=== PATIENT | female | born 1980 | race Caucasian/White ===

== ENCOUNTER → 2019-04-30 09:26 | Outpatient (CLI) | payer OTHER, MEDICAID, SELFPAY ==
--- NOTE | 2019-04-30 09:28 | DI.US.S_ITS ---
PROCEDURE: US OB <= 14 WEEKS FETUS INDICATIONS: DATING OUTSIDE/PRIOR DATING DATA: Last menstrual period (LMP): 03/04/19. LMP-based estimated date of delivery (GARO): 12/09/19. First dating scan (date and location): 04/30/19. Estimated date of delivery (GARO) from first dating scan: 12/08/19. TECHNIQUE: Real-time scanning was performed of the fetus and maternal pelvic organs, with image documentation. COMPARISON: None. FINDINGS: Embryo: Single living intrauterine fetus is present with a crown-rump length measuring 1.8 cm, 8 weeks 2 days. heart rate measures 169 beats per minute. A presumed right corpus luteum. Measurement variability in dating: +/- 4 weeks by LMP, +/- 7 days by mean sac diameter (use before 6 weeks gestation if crown-rump length not able to be measured), +/- 5 days by crown-rump length (up to 8 weeks 6 days gestation), +/- 7 days by crown-rump length (up to 13 weeks 6 days gestation). Maternal organs: Ovaries unremarkable. Limited images through the kidneys demonstrate no hydronephrosis. IMPRESSION: Single living intrauterine fetus with gestational age of 8 weeks and 2 days by today's ultrasound measurements corresponding to an GARO of 12/08/19, concordant with LMP as above. Dictated by: Humble Gifford M.D. on 04/30/2019 at 10:51 Approved by: Humble Gifford M.D. on 04/30/2019 at 10:53
== END ==
PROVIDERS: Family Provider Internal Medicine; PCP Internal Medicine; Visit Provider Obstetrics & Gynecology
DX: Z34.81 Encounter for supervision of other normal pregnancy, first trimester (principal); Z3A.08 8 weeks gestation of pregnancy
CPT/HCPCS: 76801

== ENCOUNTER → 2019-05-11 12:46 | Outpatient (CLI) | payer OTHER, MEDICAID, SELFPAY ==
[2019-05-11 13:09] LABS: Add Manual Diff / Slide Review NO; Basophils Absolute Auto 0 /uL (0-100); Basophils Percent Auto 0.3 % (0-2); Eosinophils Absolute Auto 100 /uL (0-450); Eosinophils Percent Auto 0.5 % (2-4); Hematocrit 37.4 % (36-46); Hemoglobin 12.8 g/dL (12.0-16.0); Lymphocytes Absolute Auto 2200 /uL (1100-4500); Lymphocytes Percent Auto 15.3 % (25-40); Mean Corpuscular HGB Conc 34.4 % (30-36); Mean Corpuscular Hemoglobin 31.1 PG (26-34); Mean Corpuscular Volume 90.6 fL (80-100); Monocytes Absolute Auto 800 /uL (0-900); Monocytes Percent Auto 5.4 % (3-14); Neutrophils Absolute Auto 11100 /uL (1500-7000); Neutrophils Percent Auto 78.5 % (50-75); Platelet Count 321 X10^3/uL (150-400); Red Blood Cell Count 4.13 X10^6/uL (4.0-5.2); Red Cell Distribution Width 12.3 % (11.6-14.8); White Blood Cell Count 14.2 X10^3/uL (4.5-11.0)
[2019-05-11 13:53] LABS: Appearance Urine UA CLOUDY; Bilirubin Urine UA NEGATIVE (NEGATIVE); Color Urine UA YELLOW; Glucose Urine UA NEGATIVE (Negative); Ketones Urine UA NEGATIVE (NEGATIVE); Leukocyte Esterase Urine UA NEGATIVE (NEGATIVE); Nitrite Urine UA POSITIVE (Negative); Occult Blood Urine UA NEGATIVE (Negative); Protein Urine UA NEGATIVE (Negative); Urobilinogen Urine UA 0.2 E.U./dL (0.2)
[2019-05-11 15:40] LABS: Hepatitis B Surface Antigen NEGATIVE s/c (NEGATIVE)
[2019-05-11 15:58] LABS: HIV 1 & 2 Ab/Ag 4th Gen Combo NEGATIVE (NEGATIVE); Hep C Virus Ab w/Reflex Quant NEGATIVE s/c (NEGATIVE)
== END ==
PROVIDERS: Visit Provider Obstetrics & Gynecology
DX: Z34.90 Encounter for supervision of normal pregnancy, unspecified, unspecified trimester (principal)
CPT/HCPCS: 36415; 80055; 81003; 86787; 86803; 86850; 86900; 86901; 87077; 87086; 87186; 87389

== ENCOUNTER → 2019-06-17 09:05 | Outpatient (CLI) | payer OTHER, MEDICAID, SELFPAY ==
[2019-06-17 10:42] LABS: Appearance Urine UA CLEAR; Bilirubin Urine UA NEGATIVE (NEGATIVE); Color Urine UA YELLOW; Glucose Urine UA NEGATIVE (Negative); Ketones Urine UA NEGATIVE (NEGATIVE); Leukocyte Esterase Urine UA NEGATIVE (NEGATIVE); Nitrite Urine UA NEGATIVE (Negative); Occult Blood Urine UA NEGATIVE (Negative); Protein Urine UA NEGATIVE (Negative); Specific Gravity Urine UA 1.015 (1.000-1.035); Urobilinogen Urine UA 0.2 E.U./dL (0.2)
[2019-06-17 11:06] LABS: HIV 1 & 2 Ab/Ag 4th Gen Combo NEGATIVE (NEGATIVE); Hep C Virus Ab w/Reflex Quant NEGATIVE s/c (NEGATIVE)
== END ==
PROVIDERS: Visit Provider Obstetrics & Gynecology
DX: Z34.01 Encounter for supervision of normal first pregnancy, first trimester (principal); O09.522 Supervision of elderly multigravida, second trimester; Z3A.14 14 weeks gestation of pregnancy
CPT/HCPCS: 36415; 81003; 86803; 86850; 86900; 86901; 87389

== ENCOUNTER → 2019-08-26 16:17 | Outpatient (CLI) | payer OTHER, MEDICAID, SELFPAY ==
--- NOTE | 2019-08-26 16:19 | DI.RAD.S_ITS ---
PROCEDURE: XR TOE LT MIN 2V INDICATIONS: toe pain TECHNIQUE: 3 views of the left great toe(s) acquired. COMPARISON: None. FINDINGS: Bones: There is a nondisplaced fracture involving the distal phalanx of the left great toe. No definite intra-articular extension to the interphalangeal joint. Overlying soft tissue edema. Mild degenerative changes of the left first metatarsophalangeal joint. No suspicious bony lesions. Soft tissues: No suspicious soft tissue densities. IMPRESSION: Nondisplaced fracture involving the distal phalanx of the left great toe. Dictated by: Cornel Reyna M.D. on 08/26/2019 at 17:42 Approved by: Cornel Reyna M.D. on 08/26/2019 at 17:45
== END ==
PROVIDERS: Visit Provider Physician Assistant
DX: S92.425A Nondisplaced fracture of distal phalanx of left great toe, initial encounter for closed fracture (principal); S90.122A Contusion of left lesser toe(s) without damage to nail, initial encounter; X58.XXXA Exposure to other specified factors, initial encounter
CPT/HCPCS: 73660

== ENCOUNTER → 2020-03-23 16:41 | Outpatient (CLI) | payer OTHER, MEDICAID, SELFPAY ==
[2020-03-23 17:15] LABS: Hematocrit 40.4 % (36-46); Hemoglobin 14.2 g/dL (12.0-16.0); Mean Corpuscular HGB Conc 35.2 % (30-36); Mean Corpuscular Hemoglobin 32.1 PG (26-34); Mean Corpuscular Volume 91.1 fL (80-100); Platelet Count 340 X10^3/uL (150-400); Red Blood Cell Count 4.44 X10^6/uL (4.0-5.2); Red Cell Distribution Width 12.3 % (11.6-14.8); White Blood Cell Count 9.4 X10^3/uL (4.5-11.0)
[2020-03-23 17:42] LABS: Alanine Aminotransferase 29 IU/L (<35); Albumin 4.7 g/dL (3.5-5.0); Albumin Globulin Ratio 1.7 (1.0-2.8); Alkaline Phosphatase 78 U/L (38-126); Aspartate Aminotransferase 30 IU/L (14-36); BUN Creatinine Ratio 21.4 (6-22); Bilirubin Total 0.3 mg/dL (0.2-1.3); Blood Urea Nitrogen 15 mg/dL (7-17); Calcium 10.2 mg/dL (8.4-10.2); Carbon Dioxide 25 mmol/L (22-32); Chloride 104 mmol/L (98-107); Cholesterol 196 mg/dL (140-199); Estimated Glomerular Filt Rate > 60.0 mL/min (>60); Globulin 2.8 g/dL (1.7-4.1); Glucose 112 mg/dL (70-100); HDL Cholesterol 35 mg/dL (40-60); HEMOLYSIS < 15 (0-50); LDL Cholesterol Calculated 99 mg/dL (<100); Potassium 4.3 mmol/L (3.4-5.1); Sodium 139 mmol/L (137-145); Total Protein 7.5 g/dL (6.3-8.2); Triglycerides 309 mg/dL (35-150)
[2020-03-23 17:57] LABS: Vitamin D 25 Hydroxy (D3) 19.1 ng/mL (30.0-100.0)
[2020-03-23 18:11] LABS: TSH w/ Reflex to FT4 2.35 uIU/mL (0.47-4.68)
[2020-03-24 15:37] LABS: Hemoglobin A1C% w Est Avg Glu 5.2 % (4.0-6.0)
== END ==
PROVIDERS: PCP Nurse Practitioner Family; Referring Provider Nurse Practitioner Family; Visit Provider Nurse Practitioner Family
DX: Z00.00 Encounter for general adult medical examination without abnormal findings (principal); Z13.6 Encounter for screening for cardiovascular disorders; F32.9 Major depressive disorder, single episode, unspecified
CPT/HCPCS: 36415; 80053; 80061; 82306; 83036; 84443; 85027

== ENCOUNTER → 2021-03-17 07:37 | Outpatient (CLI) | payer OTHER, MEDICAID, SELFPAY ==
[2021-03-17 07:58] LABS: COVID19 -Nasal RAPID Negative (Negative)
== END ==
PROVIDERS: PCP Nurse Practitioner Family; Referring Provider Physician Assistant; Visit Provider Physician Assistant
DX: R50.9 Fever, unspecified (principal); R51.9 Headache, unspecified; R68.83 Chills (without fever); Z20.822 Contact with and (suspected) exposure to COVID-19
CPT/HCPCS: 87635

== ENCOUNTER → 2023-03-13 11:04 | Outpatient (CLI) | payer OTHER, MEDICAID, SELFPAY ==
[2023-03-13 11:57] LABS: Hematocrit 38.6 % (36-46); Hemoglobin 13.2 g/dL (12.0-16.0); Mean Corpuscular HGB Conc 34.3 % (30-36); Mean Corpuscular Hemoglobin 31.9 PG (26-34); Platelet Count 312 X10^3/uL (150-400); Red Blood Cell Count 4.15 X10^6/uL (4.0-5.2); Red Cell Distribution Width 13.4 % (11.6-14.8)
[2023-03-13 12:15] LABS: Alanine Aminotransferase 29 IU/L (<35); Albumin 4.1 g/dL (3.5-5.0); Albumin Globulin Ratio 1.3 (1.0-2.8); Alkaline Phosphatase 91 U/L (38-126); Aspartate Aminotransferase 24 IU/L (14-36); Bilirubin Total 0.5 mg/dL (0.2-1.3); Blood Urea Nitrogen 13 mg/dL (7-17); Carbon Dioxide 27 mmol/L (22-32); Chloride 103 mmol/L (98-107); Cholesterol 192 mg/dL (140-199); Estimated Glomerular Filt Rate > 60 mL/min (>60); Globulin 3.2 g/dL (1.7-4.1); Glucose 93 mg/dL (70-100); HDL Cholesterol 36 mg/dL (40-60); HEMOLYSIS < 15 (0-50); LDL Cholesterol Calculated 106 mg/dL (<100); Potassium 4.7 mmol/L (3.4-5.1); Sodium 137 mmol/L (137-145); Total Protein 7.3 g/dL (6.3-8.2); Triglycerides 250 mg/dL (35-150)
[2023-03-13 12:31] LABS: Vitamin D 25 Hydroxy (D3) 33.4 ng/mL (30.0-100.0)
[2023-03-13 12:48] LABS: TSH w/ Reflex to FT4 1.45 uIU/mL (0.47-4.68)
[2023-03-14 03:09] LABS: Labcorp Hemoglobin (Hb) A1c 5.6 % (4.8-5.6)
== END ==
PROVIDERS: Family Provider Family Medicine; PCP Family Medicine; Referring Provider Family Medicine; Visit Provider Family Medicine
DX: E55.9 Vitamin D deficiency, unspecified (principal); E78.5 Hyperlipidemia, unspecified; R53.83 Other fatigue; R73.9 Hyperglycemia, unspecified
CPT/HCPCS: 36415; 80053; 80061; 82306; 83036; 84443; 85027

== ENCOUNTER → 2023-03-26 14:51 | Outpatient (CLI) | payer OTHER, MEDICAID, SELFPAY ==
--- NOTE | 2023-03-26 14:52 | DI.RAD.S_ITS ---
PROCEDURE: XR CERVICAL SPINE 2V OR 3V INDICATIONS: neck pain and swallow difficulty TECHNIQUE: 3 view(s) of the cervical spine were acquired. COMPARISON: [facility], CR, XR THORACIC SPINE 2V, 03/26/2023, 14:49. FINDINGS: Bones: No fractures or dislocations to the T1 level. Loss of cervical lordosis. The lateral masses of C1 appear intact on the odontoid view. No suspicious bony lesions. Soft tissues: No prevertebral soft tissue swelling. IMPRESSION: 1. Loss of cervical lordosis. 2. Otherwise normal cervical spine. Dictated by: Shabana Moss M.D. on 03/26/2023 at 17:03 Approved by: Shabana Moss M.D. on 03/26/2023 at 17:06
--- NOTE | 2023-03-26 14:52 | DI.RAD.S_ITS ---
PROCEDURE: XR THORACIC SPINE 2V INDICATIONS: back pain and swallow difficulty TECHNIQUE: 2 views of the thoracic spine were acquired. COMPARISON: None. FINDINGS: Bones: No fractures or dislocations. No suspicious bony lesions. 12 pairs of ribs are noted, and appear intact where visualized. Soft tissues: No paravertebral stripe thickening. IMPRESSION: No acute osseous abnormality. Dictated by: Shabana Moss M.D. on 03/26/2023 at 17:01 Approved by: Shabana Moss M.D. on 03/26/2023 at 17:02
--- NOTE | 2023-03-26 14:52 | DI.RAD.S_ITS ---
PROCEDURE: XR SHOULDER RT MIN 2V INDICATIONS: posterior shoulder pain TECHNIQUE: 3 views of the shoulder were acquired. COMPARISON: None. FINDINGS: Bones: No fractures or dislocations. No suspicious bony lesions. Visualized ribs appear intact. Soft tissues: No suspicious soft tissue calcifications. IMPRESSION: No acute osseous abnormality. Dictated by: Shabana Moss M.D. on 03/26/2023 at 17:02 Approved by: Shabana Moss M.D. on 03/26/2023 at 17:03
== END ==
PROVIDERS: Family Provider Family Medicine; PCP Family Medicine; Referring Provider Family Medicine; Visit Provider Family Medicine
DX: M54.2 Cervicalgia (principal); M54.6 Pain in thoracic spine; S46.911A Strain of unspecified muscle, fascia and tendon at shoulder and upper arm level, right arm, initial encounter
CPT/HCPCS: 72040; 72070; 73030

== ENCOUNTER 2023-06-10 10:00 | Outpatient (RCR) | payer OTHER, MEDICAID, SELFPAY ==
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
--- NOTE | 2022-11-19 17:30 | PT.OPPOC ---
Physical, Occupational & Speech Therapy At [facility] Current Diagnoses Difficulty in walking, not elsewhere classified (11/19/22) Weakness (11/19/22) Displaced bicondylar fracture of right tibia, initial encounter for closed fracture (11/19/22) Visit Care Team Role Provider Type Citlaly Kaiser DO Family Provider Physician Primary Care Provider Specialty: Medical Address: [address] [place] [address], [address], [place], [address] Email: [email or web address] Attending Provider Referring Provider Specialty: Address: Phone: Fax: Email: Plan Of Care PT-OP-T Assessment and Plan Start: 11/14/22 17:44 Freq: Status: Active Protocol: Document 11/19/22 09:50 [facility] (Rec: 11/19/22 10:36 [facility] [id number]) Physical Therapy Assessment Rehab Potential Rehabilitation Potential Good Evaluation Complexity Number of Personal Factors/Comorbidities 3 or More Number of Body Systems Impaired 4 or More Clinical Presentation at Evaluation Evolving Impairments Impairments Activity Tolerance,Balance, Edema,Functional Activities, Functional Mobility,Gait, Integument,Pain,Posture,ROM, Sensation,Soft Tissue Mobility ,Strength Goals gait Alf Goal (LTG) Upon clearance from MD and w/ further gait training and strenghtening, pt will be able to amb w/o AD safely w/good mechanics and no inc pain greater than 2/10. LTG Duration 02/11/23 ROM Short Term Goal (STG) Pt will imrpove knee R AROM to at least 0-90 STG Duration 01/04/23 Alf Goal (LTG) Pt will imrpove knee R AROM to at least 0-120 to allow improved ability to do functional activities like gait, dressing and stairs. LTG Duration 02/11/23 LEFS Impairment 12/80 Short Term Goal (STG) Pt will improve LEFS score to at least 30/80 to show improved functional ability STG Duration 01/19/23 Alf Goal (LTG) Pt will improve LEFS score to at least 50/80 to show improved functional ability LTG Duration 02/11/23 Assessment Summary Assessment Pt presents after R tibial plateau fracture and meniscus tear 10/12 then external fixation and finally internal fixation and meniscus repair on 10/29/22. She is in a locked knee brace and is NWB per ortho. She is cleared to take the brace off for PT and at this time has no known restrictions per notes or per pt except NWB and brace on when up. She is very limited in flex ROM on R side. She would benefit from skilled PT to work on progression of ROM and progress gait and strengthas allowed per orthopedic surgeons. Physical Therapy Plan Frequency and Duration Frequency of Treatment 1-2x/wk Duration of treatment (weeks) 12 Plan of Care Start Date 11/19/22 Plan of Care End Date 02/11/23 Therapeutic Interventions Therapeutic Interventions Aquatic Therapy,Balance Training,Gait Training,Home Exercise Program,Joint Mobilizations,Manual Therapy, Neuromuscular Re-education, Orthotic/Prosthetic Management ,Patient/Caregiver Education, Self-Care/Home Management,Soft Tissue Mobilization,Taping, Therapeutic Activities, Therapeutic Exercises Modalities Cold Pack/Ice Massage,Electric Stimulation,Hot Packs Next Visit Focus/Plan Next Note Type Treatment Note Next Visit Plan review exercises, train w/heel slide w/gait belt, ITB stretch, knee flex w/APs, try SLR in brace to start all direction, ankle lvl 1 band strength, STM to calf and HS if bruising improved Plan of Care Dates Plan of Care Start Date 11/19/22 Plan of Care End Date 02/11/23 Electronically Signed by: Ronit Tobar, PT 11/19/22 8775 If you are in agreement with this Plan of Care, please return a signed and dated copy. I have reviewed this Plan of Care and certify that the skilled therapy services above are required to meet the patient?s needs. Physician Signature Date Printed Name and Credentials Clinical Instructor Signature Printed Name and Credentials
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
--- NOTE | 2023-02-05 15:42 | PT.OPPOC ---
Physical, Occupational & Speech Therapy At [facility] Current Diagnoses Difficulty in walking, not elsewhere classified (02/05/23) Weakness (02/05/23) Displaced bicondylar fracture of right tibia, initial encounter for closed fracture (02/05/23) Visit Care Team Role Provider Type MATILDA James Primary Care Provider Non-Staff Specialty: Nursing Address: [address], [place], [address] Email: Citlaly Kaiser DO Family Provider Physician Specialty: Medical Address: [address] , [address], [place], [address] Email: [email or web address] Attending Provider Referring Provider Specialty: Address: Phone: Fax: Email: Plan Of Care PT-OP-T Assessment and Plan Start: 11/14/22 17:44 Freq: Status: Active Protocol: Document 02/05/23 11:37 [facility] (Rec: 02/05/23 12:01 [facility] [id number]) Physical Therapy Assessment Goals gait Mcc Goal (LTG) Upon clearance from MD and w/ further gait training and strenghtening, pt will be able to amb w/o AD safely w/good mechanics and no inc pain greater than 2/10. 02/05-pt able to walk w/o AD w/ 2/10 but does have dec stance time RLE LTG Duration 03/22 ROM Short Term Goal (STG) Pt will imrpove knee R AROM to at least 0-90 STG Duration achieved Mcc Goal (LTG) Pt will imrpove knee R AROM to at least 0-120 to allow improved ability to do functional activities like gait, dressing and stairs. 02/05-0-104 LTG Duration 04/16 LEFS Impairment 12 Short Term Goal (STG) Pt will improve LEFS score to at least 30/80 to show improved functional ability STG Duration achieved to Coke Burner Goal (LTG) Pt will improve LEFS score to at least 50/80 to show improved functional ability LTG Duration 04/16 Assessment Summary Assessment Pt is making excellent progress w/PT and is abl to amb w/min pain but signficiant limp (dec RLE ext and dec stance time one RLE and dec push off) w/o AD now. She has only been cleared for WBAT for just under 1 month and has been steadily improving ROM but is still lacking w/flex and does show ovearll dec LE strength especially at knee on RLE and inability to do SLS on RLE. she will still require extensive PT to work on imrpoving ROM of knee, strength of RLE, improving gait function, and improve balance. Physical Therapy Plan Frequency and Duration Frequency of Treatment 1-2x/wk Duration of treatment (weeks) 10 Plan of Care Start Date 02/05/23 Plan of Care End Date 04/16/23 Therapeutic Interventions Therapeutic Interventions Aquatic Therapy,Balance Training,Gait Training,Home Exercise Program,Joint Mobilizations,Manual Therapy, Neuromuscular Re-education, Orthotic/Prosthetic Management ,Patient/Caregiver Education, Self-Care/Home Management,Soft Tissue Mobilization,Taping, Therapeutic Activities, Therapeutic Exercises Modalities Cold Pack/Ice Massage,Electric Stimulation,Hot Packs Next Visit Focus/Plan Next Note Type Treatment Note Next Visit Plan Continue gait training with cane (patient to bring one in) trial step w/SPC, jt mobs for knee flexion, quad strength and SL balance progression. Plan of Care Dates Plan of Care Start Date 02/05/23 Plan of Care End Date 04/16/23 Electronically Signed by: Ronit Tobar, PT 02/05/23 [id number] If you are in agreement with this Plan of Care, please return a signed and dated copy. I have reviewed this Plan of Care and certify that the skilled therapy services above are required to meet the patient?s needs. Physician Signature Date Printed Name and Credentials Clinical Instructor Signature Printed Name and Credentials
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
--- NOTE | 2023-03-27 17:46 | PT.OPPOC ---
Physical, Occupational & Speech Therapy At [facility] Current Diagnoses Difficulty in walking, not elsewhere classified (03/27/23) Weakness (03/27/23) Displaced bicondylar fracture of right tibia, initial encounter for closed fracture (03/27/23) Visit Care Team Role Provider Type MATILDA James Primary Care Provider Non-Staff Specialty: Nursing Address: [address] [facility], [place], [address] Email: Citlaly Kaiser DO Family Provider Physician Specialty: Medical Address: [address] , [address], [place], [address] Email: [email or web address] Attending Provider Referring Provider Specialty: Address: Phone: Fax: Email: Plan Of Care PT-OP-T Assessment and Plan Start: 11/14/22 17:44 Freq: Status: Active Protocol: Document 03/27/23 11:10 (Rec: 03/27/23 11:34 [id number]) Physical Therapy Assessment Goals Dancing Group Home 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 LTG Duration 06/19/23 Work Impairment current: 2 hrs; 2-3x/wk Short Term Goal (STG) Pt will be able to work a full 3 hour shift w/out increased pain STG Duration 05/11/23 Switchman Goal (LTG) Pt will be able to return to work normally 5 hours a day for 5 days a week with 2/10 pain. LTG Duration 06/19/23 gait Group Home Goal (LTG) Upon clearance from MD and w/ further gait training and strenghtening, pt will be able to amb w/o AD safely w/good mechanics and no inc pain greater than 2/10. 02/05-pt able to walk w/o AD w/ 2/10 but does have dec stance time RLE 03/27/23- pt is able to walk w/o AD w/ 2/10 but has dec knee ext in RLE LTG Duration Achieved 03/27/23 ROM Short Term Goal (STG) Pt will imrpove knee R AROM to at least 0-90 03/27/23- pt R AROM is 111deg STG Duration achieved 03/27/23 Group Home Goal (LTG) Pt will imrpove knee R AROM to at least 0-120 to allow improved ability to do functional activities like gait, dressing and stairs. 02/05-0-104 03/27/23- 112 deg LTG Duration 06/19/23 LEFS Impairment 12/80 Short Term Goal (STG) Pt will improve LEFS score to at least 30/80 to show improved functional ability STG Duration achieved to 31/80 Group Home Goal (LTG) Pt will improve LEFS score to at least 50/80 to show improved functional ability 03/27/23- LEFS score is 38/80 LTG Duration 06/19/23 Assessment Summary Assessment With her LEs her strength is progressing. She is able to make it through a partial work shift with less discomfort and is able to walk more than she has been. pt MMT of hip and knee have increased as well R ankle. Previous testing pt was unable to do a SL heel raise, today she was able to complete 20 SL heel raises bilaterally. There is still weakness in her R calf that makes her unable to lift the heel full ROM consistantly. She is also still lacking strength in her R hip and knee . Pt would benefit from continued physical therapy so that she can continue to improve her ROM and strength so that she can get back to working normally, engage in activities w/ her son, particpate in her ADLs w/ less pain. Physical Therapy Plan Frequency and Duration Frequency of Treatment 1x/Week Duration of treatment (weeks) 12 Plan of Care Start Date 03/27/23 Plan of Care End Date 06/19/23 Therapeutic Interventions Therapeutic Interventions Aquatic Therapy,Balance Training,Gait Training,Home Exercise Program,Joint Mobilizations,Manual Therapy, Neuromuscular Re-education, Orthotic/Prosthetic Management ,Patient/Caregiver Education, Self-Care/Home Management,Soft Tissue Mobilization,Taping, Therapeutic Activities, Therapeutic Exercises Modalities Cold Pack/Ice Massage,Electric Stimulation,Hot Packs Next Visit Focus/Plan Next Note Type Treatment Note Next Visit Plan Continue gait training without AD , jt mobs for knee flexion , quad strength and SL balance progression. increase quad strength. Manual: posterior LE Plan of Care Dates Plan of Care Start Date 03/27/23 Plan of Care End Date 06/19/23 Electronically Signed by: Ronit Tobar, PT 03/27/23 5111 If you are in agreement with this Plan of Care, please return a signed and dated copy. I have reviewed this Plan of Care and certify that the skilled therapy services above are required to meet the patient?s needs. Physician Signature Date Printed Name and Credentials Clinical Instructor Signature Printed Name and Credentials Student PT Uyen Gomez participated in treatment session w/PT direct supervision
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
--- NOTE | 2023-06-10 10:52 | PT.OPPOC ---
Physical, Occupational & Speech Therapy At [facility] Current Diagnoses Difficulty in walking, not elsewhere classified (06/10/23) Weakness (06/10/23) Displaced bicondylar fracture of right tibia, subsequent encounter for closed fracture with routine healing (06/10/23) Visit Care Team Role Provider Type MATILDA James Primary Care Provider Non-Staff Specialty: Nursing Address: [address], [place], [address] Email: Citlaly Kaiser DO Family Provider Physician Specialty: Medical Address: [address] , [address], [place], [address] Email: [email or web address] Attending Provider Referring Provider Specialty: Address: Phone: Fax: Email: Plan Of Care PT-OP-T Assessment and Plan Start: 11/14/22 17:44 Freq: Status: Active Protocol: Document 06/10/23 10:06 [facility] (Rec: 06/10/23 10:52 [facility] [id number]) Physical Therapy Assessment Goals Dancing Air Conditioning Manager Goal (LTG) Pt will be able to engage in dancing activites with her son with pain 11/01. 06/10-is starting slow dancing LTG Duration 08/05 Work Impairment current: 2 hrs; 2-3x/wk Short Term Goal (STG) Pt will be able to work a full 3 hour shift w/out increased pain STG Duration achieved Group Home Goal (LTG) Pt will be able to return to work normally 5 hours a day for 5 days a week with 2/10 pain. 06/10-4 days a week for 5 hrs LTG Duration 08/05 gait Group Home Goal (LTG) Upon clearance from MD and w/ further gait training and strenghtening, pt will be able to amb w/o AD safely w/good mechanics and no inc pain greater than 2/10. 02/05-pt able to walk w/o AD w/ 2/10 but does have dec stance time RLE 03/27/23- pt is able to walk w/o AD w/ 2/10 but has dec knee ext in RLE LTG Duration Achieved 03/27/23 ROM Short Term Goal (STG) Pt will imrpove knee R AROM to at least 0-90 03/27/23- pt R AROM is 111deg STG Duration achieved 03/27/23 Air Conditioning Manager Goal (LTG) Pt will imrpove knee R AROM to at least 0-120 to allow improved ability to do functional activities like gait, dressing and stairs. 02/05-0-104 03/27/23- 112 deg LTG Duration achieved 06/10 LEFS Impairment 12/80 Short Term Goal (STG) Pt will improve LEFS score to at least 30/80 to show improved functional ability STG Duration achieved to 31/80 Air Conditioning Manager Goal (LTG) Pt will improve LEFS score to at least 50/80 to show improved functional ability 03/27/23- LEFS score is 38/80 LTG Duration achieved to 58 Assessment Summary Assessment Pt is progressing well with PT and is showing overall good strenght and ROM. She is still having limited ability to WB on RLE during squatting activities but is improving signfiicantly which is allowing her to return more to work and slowly towards dancing. Cont PT to work towards full return to work and dance. Physical Therapy Plan Frequency and Duration Frequency of Treatment Every Other Week Duration of treatment (weeks) 8 Plan of Care Start Date 06/10/23 Plan of Care End Date 08/05/23 Therapeutic Interventions Therapeutic Interventions Aquatic Therapy,Balance Training,Gait Training,Home Exercise Program,Joint Mobilizations,Manual Therapy, Neuromuscular Re-education, Orthotic/Prosthetic Management ,Patient/Caregiver Education, Self-Care/Home Management,Soft Tissue Mobilization,Taping, Therapeutic Activities, Therapeutic Exercises Modalities Cold Pack/Ice Massage,Electric Stimulation,Hot Packs Next Visit Focus/Plan Next Note Type Treatment Note Next Visit Plan cont to work pivot and rotational motion and SL LE strength activities. Plan of Care Dates Plan of Care Start Date 06/10/23 Plan of Care End Date 08/05/23 Electronically Signed by: Ronit Tobar, PT 06/10/23 1814 If you are in agreement with this Plan of Care, please return a signed and dated copy. I have reviewed this Plan of Care and certify that the skilled therapy services above are required to meet the patient?s needs. Physician Signature Date Printed Name and Credentials Clinical Instructor Signature Printed Name and Credentials
--- NOTE | 2023-08-11 17:50 | PT-OP ANOTE ---
Pt called and left message re: if she has any questions as insurance has denied further PT at this time. Pt educated to discuss w/MD in the new year if she is still having pain or issues and ask for a referral if needed.
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
== END 2023-08-20 13:01 | disposition home or self-care (01) ==
LOC: PHYS 10:00
PROVIDERS: Absent Provider Nurse Practitioner; Family Provider Family Medicine; PCP Nurse Practitioner
DX: R53.1 Weakness (principal); R26.2 Difficulty in walking, not elsewhere classified; S82.141D Displaced bicondylar fracture of right tibia, subsequent encounter for closed fracture with routine healing
CPT/HCPCS: 97110; 97112; 97116; 97140; 97162; 97530; 97750

== ENCOUNTER → 2023-07-28 08:33 | Outpatient (CLI) | payer OTHER, MEDICAID, SELFPAY ==
--- NOTE | 2023-07-28 08:34 | DI.US.S_ITS ---
PROCEDURE: US PELVIC COMPLETE INDICATIONS: ABNORMAL UTERINE BLEEDING TECHNIQUE: Real-time scanning was performed of the pelvic organs, with image documentation. Additional endovaginal scanning was necessary due to incomplete visualization of the adnexal and endometrial structures by transabdominal scanning. COMPARISON: None. FINDINGS: Uterus: Uterus is retroverted and normal in size at 7.8 x 7.5 x 5.5 cm. The myometrium is heterogeneous. Possible arcuate morphology. The endometrium measures 11.3 mm combined thickness. No fibroids. Ovaries: The right ovary measures 2.7 x 1.8 x 1.4 cm, with a calculated ovarian volume of 4 cc. The left ovary measures 3.5 x 1.7 x 1.6 cm, with a calculated ovarian volume of 5 cc. The ovaries have a normal sonographic appearance. Less than 12 follicles can be seen in each ovary. No adnexal masses are seen. Other: No pathologic free abdominal or pelvic fluid. IMPRESSION: Technically difficult exam due to body habitus and acoustic windows. Endometrium measures 11 mm. No uterine fibroids. No significant ovarian cysts. We strive to produce accurate, complete, and clear reports of imaging services. To assist us in improving patient care, this report was composed using standard report templates and voice recognition software. Therefore, it may contain abnormal punctuation, insertions and/or omissions. Occasional wrong-word or sound-alike substitutions may occur. Though we review the report and make efforts to correct it, we do recommend that the report be read carefully in proper context to recognize any text inaccuracies. Dictated by: Yoni Yoon M.D. on 07/28/2023 at 12:32 Approved by: Yoni Yoon M.D. on 07/28/2023 at 12:35
--- NOTE | 2023-07-28 08:34 | DI.MG.S_ITS ---
BILATERAL DIGITAL SCREENING MAMMOGRAM 3D/2D WITH CAD: 07/28/2023 CLINICAL: Baseline exam. Routine screening. No prior exams were available for comparison. Both breasts are almost entirely fatty (category a/<25% glandular tissue). Current study was also evaluated with a Computer Aided Detection (CAD) system. No significant masses, calcifications, or other findings are seen in either breast. IMPRESSION: NEGATIVE There is no mammographic evidence of malignancy. A 1 year screening mammogram is recommended. Based on the Tyrer Cuzick model (a risk assessment model) the patient's lifetime risk is 6.2% and her 10 year risk is 0.7%. According to the ACR, ACS, and NCCN guidelines, an annual breast MRI exam along with mammogram is recommended if the patient's lifetime risk is 20% or greater. This exam was interpreted at Station ID: [id number]. NOTE: For mammograms, a report in lay terms will be sent to the patient. Approximately 15% of breast malignancies will not be visualized mammographically. In the management of a palpable breast mass, a negative mammogram must not discourage biopsy of a clinically suspicious lesion. Electronically Signed By: Karmen Garibay M.D., PH.D eb/penrad:07/28/2023 10:24:11 letter sent: Normal Exam ACR BI-RADS Category 1: Negative 3341F
== END ==
PROVIDERS: Family Provider Family Medicine; PCP Family Medicine; Referring Provider Family Medicine; Visit Provider Family Medicine
DX: Z12.31 Encounter for screening mammogram for malignant neoplasm of breast (principal); N93.9 Abnormal uterine and vaginal bleeding, unspecified
CPT/HCPCS: 76830; 76856; 77063; 77067

== ENCOUNTER → 2024-12-05 12:18 | Outpatient (CLI) | payer OTHER, SELFPAY ==
[2024-12-05 13:31] LABS: COVID-19 CEPHEID 4-PLEX PCR Negative (Negative); Influenza A - CEPHEID Flu A NEGATIVE (NEGATIVE); Influenza B - CEPHEID Flu B NEGATIVE (NEGATIVE); Respiratory Syncytial Virus Negative (Negative)
== END ==
PROVIDERS: Family Provider Family Medicine; PCP Family Medicine; Visit Provider Nurse Practitioner Family
DX: J02.9 Acute pharyngitis, unspecified (principal); R52 Pain, unspecified; R05.9 Cough, unspecified
CPT/HCPCS: 0241U; 87070

== ENCOUNTER → 2024-12-05 12:33 | Outpatient (CLI) | payer OTHER, SELFPAY ==
--- NOTE | 2024-12-05 12:35 | DI.RAD.S_ITS ---
PROCEDURE: XR CHEST 2V INDICATIONS: Cough TECHNIQUE: 2 views of the chest were acquired. COMPARISON: None. FINDINGS: Surgical changes and devices: None. Lungs and pleura: Lungs are clear. No pleural effusions or pneumothorax. Mediastinum: Mediastinal contours are normal. Heart size is normal. Bones and chest wall: No suspicious bony abnormalities. Soft tissues appear unremarkable. IMPRESSION: No acute pulmonary process. Dictated by: Jaelyn Hill M.D. on 12/05/2024 at 14:20 Approved by: Jaelyn Hill M.D. on 12/05/2024 at 14:21
== END ==
LOC: RAD 12:34
PROVIDERS: Family Provider Family Medicine; PCP Family Medicine; Referring Provider Nurse Practitioner Family; Visit Provider Nurse Practitioner Family
DX: R05.9 Cough, unspecified (principal); J02.9 Acute pharyngitis, unspecified; R52 Pain, unspecified
CPT/HCPCS: 87635; 87400 ×2; 87420; 0241U; 71046; 87070

== ENCOUNTER → 2025-04-06 09:06 | Outpatient (CLI) | payer OTHER, SELFPAY ==
[2025-04-06 09:45] LABS: Hematocrit 41.2 % (36-46); Hemoglobin 14.5 g/dL (12.0-16.0); Mean Corpuscular HGB Conc 35.1 % (30-36); Mean Corpuscular Hemoglobin 32.3 PG (26-34); Mean Corpuscular Volume 92.1 fL (80-100); Platelet Count 248 X10^3/uL (150-400)
[2025-04-06 09:55] LABS: Hemoglobin A1C% w Est Avg Glu 10.3 % (4.0-6.0)
[2025-04-06 10:03] LABS: Alanine Aminotransferase 57 IU/L (<35); Albumin 4.2 g/dL (3.5-5.0); Albumin Globulin Ratio 1.6 (1.0-2.8); Alkaline Phosphatase 77 U/L (38-126); Blood Urea Nitrogen 15 mg/dL (7-17); Calcium 8.4 mg/dL (8.4-10.2); Carbon Dioxide 22 mmol/L (22-32); Chloride 103 mmol/L (98-107); Cholesterol 178 mg/dL (140-199); Estimated Glomerular Filt Rate > 60 mL/min (>60); Globulin 2.6 g/dL (1.7-4.1); Glucose 287 mg/dL (70-99); HDL Cholesterol 30 mg/dL (40-60); HEMOLYSIS < 15 (0-50); Potassium 4.5 mmol/L (3.4-5.1); Sodium 133 mmol/L (137-145); Total Protein 6.8 g/dL (6.3-8.2); Triglycerides 393 mg/dL (35-150)
[2025-04-06 10:20] LABS: Vitamin D 25 Hydroxy (D3) 27.4 ng/mL (30.0-100.0)
[2025-04-06 10:34] LABS: TSH w/ Reflex to FT4 1.11 uIU/mL (0.47-4.68)
[2025-04-08 04:10] LABS: CRP, High Sensitivity 5.82 mg/L (0.00-3.00)
[2025-04-08 21:07] LABS: Insulin Level Total 28.5 uIU/mL (2.6-24.9)
== END ==
PROVIDERS: PCP Family Medicine; Referring Provider Family Medicine; Visit Provider Family Medicine
DX: Z00.01 Encounter for general adult medical examination with abnormal findings (principal); F32.9 Major depressive disorder, single episode, unspecified; F41.9 Anxiety disorder, unspecified; E55.9 Vitamin D deficiency, unspecified; I48.91 Unspecified atrial fibrillation; E66.01 Morbid (severe) obesity due to excess calories; Z68.41 Body mass index [BMI] 40.0-44.9, adult
CPT/HCPCS: 36415; 80053; 80061; 82306; 83036; 83525; 84443; 85027; 86140

== ENCOUNTER → 2025-04-22 07:27 | Outpatient (CLI) | payer OTHER, SELFPAY ==
[2025-04-22 08:59] LABS: Alanine Aminotransferase 100 IU/L (<35); Albumin 4.5 g/dL (3.5-5.0); Albumin Globulin Ratio 1.7 (1.0-2.8); Alkaline Phosphatase 68 U/L (38-126); Blood Urea Nitrogen 18 mg/dL (7-17); Calcium 9.4 mg/dL (8.4-10.2); Carbon Dioxide 23 mmol/L (22-32); Chloride 103 mmol/L (98-107); Estimated Glomerular Filt Rate > 60 mL/min (>60); Globulin 2.7 g/dL (1.7-4.1); Glucose 173 mg/dL (70-99); HEMOLYSIS < 15 (0-50); Potassium 4.6 mmol/L (3.4-5.1); Sodium 135 mmol/L (137-145); Total Protein 7.2 g/dL (6.3-8.2)
== END ==
PROVIDERS: PCP Family Medicine; Referring Provider Family Medicine; Visit Provider Family Medicine
DX: R20.0 Anesthesia of skin (principal); R20.2 Paresthesia of skin; E11.9 Type 2 diabetes mellitus without complications; Z71.3 Dietary counseling and surveillance
CPT/HCPCS: 36415; 80053; 97802

== ENCOUNTER → 2025-04-22 12:57 | Outpatient (CLI) | payer OTHER, SELFPAY ==
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
== END ==
LOC: DIET 12:58
PROVIDERS: PCP Family Medicine; Referring Provider Family Medicine
DX: E11.9 Type 2 diabetes mellitus without complications (principal); Z71.3 Dietary counseling and surveillance
CPT/HCPCS: 97802

== ENCOUNTER → 2025-05-20 14:30 | Outpatient (CLI) | payer OTHER, SELFPAY ==
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
== END ==
PROVIDERS: PCP Family Medicine; Referring Provider Family Medicine
DX: E11.9 Type 2 diabetes mellitus without complications (principal); Z71.3 Dietary counseling and surveillance; Z79.84 Long term (current) use of oral hypoglycemic drugs
CPT/HCPCS: 97803

== ENCOUNTER → 2025-06-21 08:55 | Outpatient (CLI) | payer OTHER, SELFPAY ==
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
== END ==
PROVIDERS: PCP Family Medicine; Referring Provider Family Medicine
DX: E11.9 Type 2 diabetes mellitus without complications (principal); Z71.3 Dietary counseling and surveillance; Z88.8 Allergy status to other drugs, medicaments and biological substances
CPT/HCPCS: 97803

== ENCOUNTER → 2025-07-08 08:02 | Outpatient (CLI) | payer OTHER, SELFPAY ==
[2025-07-08 09:11] LABS: Hemoglobin A1C% w Est Avg Glu 5.6 % (4.0-6.0)
[2025-07-08 09:22] LABS: Alanine Aminotransferase 27 IU/L (<35); Albumin 4.1 g/dL (3.5-5.0); Albumin Globulin Ratio 1.5 (1.0-2.8); Alkaline Phosphatase 63 U/L (38-126); Blood Urea Nitrogen 19 mg/dL (7-17); Calcium 9.1 mg/dL (8.4-10.2); Carbon Dioxide 24 mmol/L (22-32); Chloride 103 mmol/L (98-107); Estimated Glomerular Filt Rate > 60 mL/min (>60); Globulin 2.7 g/dL (1.7-4.1); Glucose 105 mg/dL (70-99); HEMOLYSIS < 15 (0-50); Potassium 4.4 mmol/L (3.4-5.1); Sodium 137 mmol/L (137-145); Total Protein 6.8 g/dL (6.3-8.2)
== END ==
PROVIDERS: PCP Family Medicine; Referring Provider Family Medicine; Visit Provider Family Medicine
DX: E11.69 Type 2 diabetes mellitus with other specified complication (principal); E66.01 Morbid (severe) obesity due to excess calories; Z68.41 Body mass index [BMI] 40.0-44.9, adult
CPT/HCPCS: 36415; 80053; 83036

== ENCOUNTER → 2025-07-14 10:57 | Outpatient (CLI) | payer OTHER, SELFPAY ==
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
== END ==
PROVIDERS: PCP Family Medicine; Referring Provider Family Medicine
DX: E11.9 Type 2 diabetes mellitus without complications (principal); Z71.3 Dietary counseling and surveillance
CPT/HCPCS: 97803